=== PATIENT | male | born 1945 | race Caucasian/White ===

== ENCOUNTER 2018-10-10 13:35 | Inpatient (IN) | payer MEDICARE ==
[2018-10-10 14:55] LABS: #Lymphocytes 2.2 thou/uL (1.20-3.40); #Monocytes 0.9 thou/uL (0.11-0.59); #Neutrophils 10.1 thou/uL (1.40-6.50); %Basophils 0.2 % (0.0-1.0); %Eosinophils 0.4 % (0.0-10.0); %Lymphocytes 16.8 % (21.0-51.0); %Monocytes 6.7 % (0.0-10.0); Hemoglobin 12.5 g/dL (14.0-18.0); Mean Corpuscular HGB CONC 33.4 g/dL (32.0-36.0); Mean Corpuscular Hemoglobin 29.7 pg (27.0-31.0); Mean Platelet Volume 8.3 fL (7.4-10.4); Platelet Count 189 thou/uL (130-400); RBC Distribution Width 12.9 % (11.5-14.5); Red Blood Cell (RBC) Count 4.21 mill/uL (4.70-6.10); White Blood Cell (WBC) Count 13.2 thou/uL (4.8-10.8)
[2018-10-10 15:16] LABS: Phosphorus 3.9 mg/dL (2.3-4.7)
--- NOTE | 2018-10-10 15:17 | RAD ---
FRONTAL VIEW CHEST: INDICATION: Altered mental status. FINDINGS: Reference is made to 08/18/2018. There is a linear density at the left lung base which may relate to scar or volume loss. Mild perihi lar interstitial prominence is seen bilaterally. Cardiac silhouette is stable in size. No additiona l significant interval change. IMPRESSION: 1. Left basilar atelectasis/scarring. 2. Mild interstitial prominence of the bilateral perihilar regions which could relate to edema or in terstitial lung disease. Consider imaging followup for continued assessment. POS: MADELAINE
[2018-10-10 15:20] LABS: ALT (SGPT) 10 U/L (8-55); AST (SGOT) 14 U/L (5-34); Acetaminophen Less than 6.0 mcg/mL (10.0-30.0); Albumin 3.2 g/dL (3.4-4.8); Alcohol Less than 10 mg/dL (Less than 10); Alkaline Phosphatase 94 U/L (40-150); Anion Gap 15 mmol/L (10-20); BUN (Urea Nitrogen) 48 mg/dL (8.4-25.7); Bilirubin, Total 0.7 mg/dL (0.2-1.2); Calc. Creatinine Clearance 34 mL/min (70-130); Calcium 8.1 mg/dL (7.8-10.44); Carbon Dioxide 19 mmol/L (23-31); Chloride 107 mmol/L (98-107); Estimated GFR-MDRD 20; Globulin 3.2 g/dL (2.4-3.5); Glucose 187 mg/dL (83-110); Magnesium 2.3 mg/dL (1.6-2.6); Potassium 3.3 mmol/L (3.5-5.1); Protein, Total 6.4 g/dL (5.8-8.1); Salicylate Less than 8.0 mg/dL (15.0-30.0); Sodium 138 mmol/L (136-145)
--- NOTE | 2018-10-10 15:55 | CT ---
CT HEAD WITHOUT CONTRAST: INDICATIONS: Confusion. COMPARISON: 08/18/2018 FINDINGS: Multifocal chronic deep white matter and deep smith nuclei infarctions, consistent with cavitary lacun ar infarctions, are redemonstrated. There is ex vacuo dilatation of the ventricular system, stable. No intracranial hemorrhage, mass effect, or midline shift. Mild chronic microvascular ischemic dise ase is present. IMPRESSION: 1. Stable head CT without interval acute intracranial hemorrhage or mass effect. 2. Redemonstration of multifocal cavitary lacunar infarctions, superimposed upon microvascular ische shaka disease. POS: MADELAINE
--- NOTE | 2018-10-10 15:59 | RAD ---
Exam: Chest one view COMPARISON: 10/10/2018 HISTORY: Status post central line placement FINDINGS: Stable cardiac silhouette. Pulmonary vessels are prominent. There are patchy interstitial a nd alveolar opacities. Small left-sided pleural effusion. Interval placement of a right-sided internal jugular central venous catheter. No pneumothorax in the supine projection. IMPRESSION: 1. Evidence for congestive heart failure/volume overload. 2. Right-sided central venous catheter as above. No pneumothorax on this supine projection
[2018-10-10 16:35] LABS: Bilirubin Small (Negative); Blood, Urine Negative (Negative); Clarity CLOUDY (Clear); Glucose, Urine (Dipstick) Negative (Negative); Leukocyte Negative (Negative); Nitrite Negative (Negative); Protein, Urine (Dipstick) Trace mg/dL (Neg-Trace)
[2018-10-10 16:48] LABS: Amphetamine Not Detected (NotDetected); Barbiturates Screen Not Detected (NotDetected); Benzodiazepine Screen Not Detected (NotDetected); Cocaine Metabolite Screen Not Detected (NotDetected); Medtox Control Line Valid? VALID (VALID); Medtox Reader # READER 1; Methadone Not Detected (NotDetected); Methamphetamine Not Detected (NotDetected); Opiate Screen Detected (NotDetected); Oxycodone Screen Not Detected (NotDetected); Phencyclidine (PCP) Not Detected (NotDetected); THC/Cannabinoid Screen Not Detected (NotDetected); Tricyclic Screen Detected (NotDetected)
[2018-10-10] MEDS ORDERED: Piperacillin/Tazobactam 4.5 GM VIAL ONE (17:11)
--- NOTE | 2018-10-10 17:25 | PDOC.FPRHP ---
- History of Present Illness Chief Complaint: Weakness, Somnolence, Drug Toxicity History of Present Illness: Mr. 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 He was awake and semi alert for interview but was primary historian. Pt became somnolent, unresponsive, and diaphoretic after parking his truck early this am. His says he was unresponsive for 20 mins before EMS arrived. At this time he was found to be hypotensive. He does not remember this occurrence. His states he had no symptoms yesterday but has episodes of lethargy and fatigue 2-3x/month. During these episodes he has difficutly with normal activity. The episode resolves in 1-2 days. Of note his states he took double his medication this morning. She states this is not uncommon as he does not realize it can harm him. He denies recent steroids. ED Course: EMS noted his BP's to be low so he was started immediately on fluid resuscitation. An IJV line was placed in route to the ED. Due to his continued low pressures, epinephrine was started which managed to control his blood pressures with MAPs slightly above 65. He was found to have leukocytosis 13.2 with left shift, BNP < 10, BUN 48, Creat 3.06, lactic acid 3.1, K 3.3. He was given zosyn. CT head was unremarable for acute pathology. Initial CXR was unremarkable; repeat CXR revealed pulmonary edema and congestion. UDS revealed opiates, tricyclics which are in home meds. - Allergies/Adverse Reactions Allergies Allergy/AdvReac Type Severity Reaction Status Date / Time No Known Allergies Allergy Verified 10/10/18 20:00 - Home Medications Medication Instructions Recorded Confirmed Type Acetaminophen W/ Codeine 1 tab PO PRN PRN 10/10/18 10/10/18 History [Acetaminophen/Codeine #3] Amiodarone HCl 0.5 tab PO DAILY 10/10/18 10/10/18 History Amlodipine [Norvasc] 0.5 tab PO DAILY 10/10/18 10/10/18 History Lamotrigine [lamoTRIgine] 1.25 tab PO DAILY 10/10/18 10/10/18 History Losartan Potassium 1 tab PO BID 10/10/18 10/10/18 History Pantoprazole Sodium 40 mg PO DAILY 10/10/18 10/10/18 History QUEtiapine Fumarate [Quetiapine 400 mg PO HS 10/10/18 10/10/18 History Fumarate ER] Rosuvastatin [Crestor] 1 tab PO DAILY 10/10/18 10/10/18 History - History PMHx: HTN, bipolar, hx of CVA, CHF with likely decreased EF but pt was not positive, A-fib requiring cardioversion twice, hemorrhagic stroke secondary to a fall, and 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 denies: numbness, seizure - Vital signs BP: [] HR: [] RR: [] Tmax: [] Pox: []% on [] Wt: [] - Physical Exam Constitutional: awake, alert and oriented, other HEENT: PERRLA Neck: trachea midline, no JVD Chest: no-tender to palpation Heart: RRR, normal S1/S2, pulses present, no edema, other (systolic murmur appreciated) Lungs: CTAB, no respiratory distress, no rales/rhonchi, no wheezing Abdomen: soft, non-tender, bowel sounds present Musculoskeletal: normal structure Neurological: CN II-XII intact Skin: no rash/lesions Heme/Lymphatic: no purpura, no petechia FMR H&P: Results - Labs Result Diagrams: 10/11/18 04:15 10/11/18 04:15 Lab results: WBC 13.2 thou/uL (4.8-10.8) H 10/10/18 14:42 Hgb 12.5 g/dL (14.0-18.0) L 10/10/18 14:42 Hct 37.4 % (42.0-52.0) L 10/10/18 14:42 MCV 89.0 fL (78.0-98.0) 10/10/18 14:42 Plt Count 189 thou/uL (130-400) 10/10/18 14:42 Neutrophils % 76.0 % (42.0-75.0) H 10/10/18 14:42 Sodium 138 mmol/L (136-145) 10/10/18 14:42 Potassium 3.3 mmol/L (3.5-5.1) L 10/10/18 14:42 Chloride 107 mmol/L (98-107) 10/10/18 14:42 Carbon Dioxide 19 mmol/L (23-31) L 10/10/18 14:42 BUN 48 mg/dL (8.4-25.7) H 10/10/18 14:42 Creatinine 3.06 mg/dL (0.7-1.3) H 10/10/18 14:42 Glucose 187 mg/dL (83-110) H 10/10/18 14:42 Lactic Acid 3.1 mmol/L (0.5-2.2) H 10/10/18 14:42 Calcium 8.1 mg/dL (7.8-10.44) 10/10/18 14:42 Total Bilirubin 0.7 mg/dL (0.2-1.2) 10/10/18 14:42 AST 14 U/L (5-34) 10/10/18 14:42 ALT 10 U/L (8-55) 10/10/18 14:42 Alkaline Phosphatase 94 U/L (40-150) 10/10/18 14:42 B-Natriuretic Peptide Less than 10.0 pg/mL (0-100) 10/10/18 14:42 Serum Total Protein 6.4 g/dL (5.8-8.1) 10/10/18 14:42 Albumin 3.2 g/dL (3.4-4.8) L 10/10/18 14:42 Urine Ketones Negative mg/dL (Negative) 10/10/18 16:11 Urine Blood Negative (Negative) 10/10/18 16:11 Urine Nitrite Negative (Negative) 10/10/18 16:11 Ur Leukocyte Esterase Negative (Negative) 10/10/18 16:11 - Radiology Interpretation CT scan - head Status: report reviewed by me (unremarkable) Chest x-ray Status: image reviewed by me (Initial CXR was unremarkable; follow up CXR revealed congestion and pulmonary edema) FMR H&P: A/P - Problem List (1) Hypotension Current Visit: Yes Status: Acute (2) NADJA (acute kidney injury) Current Visit: Yes Status: Acute Code(s): N17.9 - ACUTE KIDNEY FAILURE, UNSPECIFIED (3) Lactic acid acidosis Current Visit: Yes Status: Acute Code(s): E87.2 - ACIDOSIS (4) Drug toxicity Current Visit: Yes Status: Acute Priority: High Code(s): R89.2 - ABN LEV DRUG/MEDS/BIOL SUBST IN SPECIMENS FROM OTH ORG/TISS (5) Dementia Current Visit: Yes Status: Acute Code(s): F03.90 - UNSPECIFIED DEMENTIA WITHOUT BEHAVIORAL DISTURBANCE (6) Hypertension Current Visit: Yes Status: Acute Code(s): I10 - ESSENTIAL (PRIMARY) HYPERTENSION - Plan # Unresponsiveness # Symptomatic Hypotension Secondary to Cardiogenic shock vs septic shock Pt unresponsive for 20 mins before EMS arrived. BP's low on arrival to ED 70's/ 40's, given 3.5 L, IJ line started, epinephrine administered. Pressures increased w/ MAP >65. GLucose stable in ED. He has hx of previous episodes of fatigue/lethargy but none resulting in unresponsiveness. Initial CXR was unremarkable but after fluids repeat showed pulm congestion/ edema. CT head unremarkable. BNP < 10, trop negative, UDS positive tricyclic/ opioids, lactic 3.1, BUN 48, crea 3.06. He did not appear fluid overloaded on exam. - levophed started - echo ordered - 3.5 L given - repeat BNP - ABG ordered - Zosyn, vanc started for broad spectrum coverage but no source. Consult pharm for dosing, appreciate the rec's - pending UCx, BloodCx, procal, latic acid, - repeat EKG - fluid limitation 1500ml, strict I's/O's # NADJA vs CKD Do not have records to assess pt's kidney function prior admission. BUN 48, Crea 3.06 with ratio ~16 not necessarily indicating pre-renal cause if NADJA - repeat bmp in am - hopefully with increased perfusion of organs will see resolution in kidney dysfunction. # Lactic Acidosis Likely secondary to hypoperfusion with acute hypotensive episode. Lactic acid 3.1. - repeat lactic acid # Drug Toxicity Pt's family reports he took double his medications this morning. - hold home BP meds # Hypertension - Hold home meds # Dementia - continue to monitor FMR H&P: Upper Level - Pertinent history 72 yo M w/ PMH of HTN, HF with presumed reduced EF per family history, paroxysmal a-fib who presents after an episode of hypotension and unresponsiveness. Per family pt was found slouched in his truck and unresponsive. Over the last month the pts family has reported he has had episodes of hypotension without any identifiable source. Today the family noted he took his morning and evening blood pressure medications all at once. He denies any associated symptoms aside from weakness. Family denies an recent complaints. No cp, SOB, NVDC, fever, chills, dysuria. - Pertinent findings PE: Gen: Somnolent, no acute distress HEENT: NCAT, Rt IJ in place Respiratory: Lungs CTA bl Cards: 3/6 LISA, distant heart sounds, No hepatojugular reflux Abd: Soft NTND, BSX4 Neuro: Pt GCS 15, reposnds to verbal stimuli and appropriately responds to questions A/P 1) Shock: septic vs cardiogenic pt has elevated wbc with left shift and hypotension, was started on broad spectrum abx, will cont abx and check procal cxr and urine negative no source of infection possibly cardiogenic vs medication side effect echo pending will cont levophed maintain map >65 2) Lactic acidosis trend; likely 2/2 hypoperfusion check echo and continue pressor support plus broad spectrum abx, procal pending 3) NADJA on CKD vs CKD - consider am calcium and phos, possible nephro consult; however, elytes currently stable - Bun/Cr<20 - monitor AM BMP, trend 4) HTN: curerntly hypotensive, hold home medications - cont levophed and maintain MAP>65 - Plan Date/Time: 10/10/18 [id number] IJay DO, have evaluated this patient and agree with findings/ plan as outlined by internet developer resident. Pertinent changes/additions are listed here. Pt disposition guarded. Admit to CCU and cont pressor support. Cont workup for source of hypotension. PCP: [facility] Code Status: Full
[2018-10-10] MEDS ORDERED: Ondansetron PF 4 MG/2 ML Vial IVP PRN ×2 (18:49→19:15)
[2018-10-10] MEDS ORDERED: Ondansetron ODT 4 MG TAB SL PRN (18:49)
[2018-10-10] MEDS ORDERED: Norepinephrine 8 MG/0.9% NS 250 ML IVPB SCH (19:15)
[2018-10-10] MEDS ORDERED: CCU Electrolyte Replacement 1 EACH FS ONE (19:15)
[2018-10-10] MEDS ORDERED: Ondansetron ODT 4 MG TAB PO PRN (19:15)
[2018-10-10] MEDS ORDERED: Acetaminophen 325 MG TAB PO PRN (19:15)
[2018-10-10 19:22] LABS: Lactic Acid 4.2 mmol/L (0.5-2.2)
[2018-10-10] MEDS ORDERED: Magnesium 2 GM/50 ML 2 GM in Premix Bag 1 BAG IVPB PRN (19:25)
[2018-10-10] MEDS ORDERED: CCU ELECTROLYTE REPLACEMENT PROTOCOL FS PRN (19:25)
[2018-10-10] MEDS ORDERED: Potassium Phosphate 9 MMOL in Sodium Chloride 0.9% 100 ML IVPB PRN (19:25)
[2018-10-10] MEDS ORDERED: Potassium Phosphate 12 MMOL in Sodium Chloride 0.9% 250 ML 250 ML IV PRN (19:25)
[2018-10-10] MEDS ORDERED: Potassium Chloride 40 MEQ in Premix Bag 1 BAG IVPB PRN (19:25)
[2018-10-10] MEDS ORDERED: PHOS-NAK 1 PKT PACK PO PRN ×2 (19:25)
[2018-10-10] MEDS ORDERED: Potassium Phosphate 15 MMOL in Sodium Chloride 0.9% 250 ML 250 ML IV PRN (19:25)
[2018-10-10] MEDS ORDERED: Potassium Chloride 20 MEQ TAB PO PRN (19:25)
[2018-10-10] MEDS ORDERED: Potassium Chloride 40 MEQ in Sodium Chloride 0.9% 250 ML 250 ML IVPB PRN (19:25)
[2018-10-10] MEDS ORDERED: Magnesium Oxide 400 MG TAB PO PRN ×2 (19:25)
[2018-10-10] MEDS ORDERED: Vancomycin HCl 1.75 GM in Sodium Chloride 0.9% 500 ML IVPB SCH (19:30)
[2018-10-10] MEDS ORDERED: Norepinephrine 8 MG in Dextrose 5% in Water 242 ML IVPB SCH (19:30)
[2018-10-10] MEDS: Sodium Chloride 0.9% 1,000 ML IV SCH (19:34)
[2018-10-10 20:24] LABS: Troponin I Less than 0.010 ng/mL (< 0.028)
[2018-10-10] MEDS ORDERED: Vancomycin HCl 1 GM in Sodium Chloride 0.9% 250 ML 250 ML IVPB SCH (21:00)
[2018-10-10 21:19] LABS: Actual Bicarbonate (HCO3a) 20.4 mEq/L (22-28); CO2 Tension 35.1 mmHg (35.0-45.0); Calcium, Ionized 1.19 mmol/L (1.12-1.30); Carboxyhemoglobin (COHb) 0.9 gm% (0.0-3.0); Hemoglobin (Hb) 12.6 g/dL (14.0-18.0); O2 Tension (PaO2) 80.9 mmHg (> 70.0); Potassium - ABG Lab 3.91 mmol/L (3.70-5.30); pH, Arterial 7.38 (7.35-7.45)
[2018-10-10 21:21] LABS: ALV-art Gradient 24.955 (0-20); Puncture Site LBR
[2018-10-11] MEDS: Piperacillin/Tazobactam 4.5 GM in Sodium Chloride 0.9% 100 ML IVPB SCH ×5 (00:05→23:35)
[2018-10-11 04:29] LABS: #Eosinphils 0.1 thou/uL (0.0-0.7); #Lymphocytes 1.5 thou/uL (1.20-3.40); #Monocytes 0.6 thou/uL (0.11-0.59); #Neutrophils 5.9 thou/uL (1.40-6.50); %Basophils 0.1 % (0.0-1.0); %Eosinophils 0.7 % (0.0-10.0); %Lymphocytes 18.7 % (21.0-51.0); %Monocytes 7.6 % (0.0-10.0); %Neutrophils 72.9 % (42.0-75.0); Hemoglobin 11.6 g/dL (14.0-18.0); Mean Corpuscular HGB CONC 33.7 g/dL (32.0-36.0); Mean Corpuscular Hemoglobin 30.1 pg (27.0-31.0); Mean Corpuscular Volume 89.4 fL (78.0-98.0); Mean Platelet Volume 7.5 fL (7.4-10.4); Platelet Count 193 thou/uL (130-400); RBC Distribution Width 12.9 % (11.5-14.5); Red Blood Cell (RBC) Count 3.85 mill/uL (4.70-6.10); White Blood Cell (WBC) Count 8.1 thou/uL (4.8-10.8)
[2018-10-11 04:42] LABS: Lactic Acid 0.6 mmol/L (0.5-2.2)
[2018-10-11 04:46] LABS: Anion Gap 11 mmol/L (10-20); BUN (Urea Nitrogen) 36 mg/dL (8.4-25.7); Calc. Creatinine Clearance 61 mL/min (70-130); Calcium 8.6 mg/dL (7.8-10.44); Carbon Dioxide 21 mmol/L (23-31); Chloride 111 mmol/L (98-107); Estimated GFR-MDRD 39; Glucose 83 mg/dL (83-110); Sodium 139 mmol/L (136-145)
[2018-10-11] MEDS: Sodium Chloride 0.9% 1,000 ML IV SCH (05:47)
--- NOTE | 2018-10-11 06:41 | PDOC.FM ---
- Subjective Subjective: pt resting comfortably in bed, denies SOB/chest pain, dizziness or visual disturbance - Objective Vital Signs & Weight: Vital Signs (12 hours) Temp Pulse Ox 10/11/18 04:00 97.7 F 10/11/18 00:00 97.9 F 10/10/18 20:00 97.7 F 98 Weight Weight 109.3 kg Most Recent Monitor Data Heart Rate from ECG 57 NIBP 129/70 NIBP BP-Mean 89 Respiration from ECG 12 SpO2 97 I&O: 10/09/18 10/10/18 10/11/18 06:59 06:59 06:59 Intake Total 1557.6 Output Total 875 Balance 682.6 Result Diagrams: 10/11/18 04:15 10/11/18 04:15 Phys Exam - Physical Examination Constitutional: NAD HEENT: moist MMs Respiratory: clear to auscultation bilateral Cardiovascular: RRR, no significant murmur Gastrointestinal: soft, non-tender, no distention Musculoskeletal: no edema, pulses present Neurological: moves all 4 limbs Psychiatric: normal affect Skin: no rash Dx/Plan (1) NADJA (acute kidney injury) Code(s): N17.9 - ACUTE KIDNEY FAILURE, UNSPECIFIED Status: Acute (2) Hypotension Status: Acute (3) Lactic acid acidosis Code(s): E87.2 - ACIDOSIS Status: Acute (4) Shock Code(s): R57.9 - SHOCK, UNSPECIFIED Status: Acute - Plan Plan: Shock, septic vs cardiogenic - elevated wbc with left shift and hypotension, procal +, UA wnl - cont broad spectrum abx until 48hr BCx (NGTD) - CXR suspicious for fluid overload possibly cardiogenic vs medication side effect - echo pending - MAPs adequate overnight, levophed DCd Lactic acidosis, resolved - likely 2/2 hypoperfusion - procal +, echo pending NADJA on CKD - improved, continue to monitor HTN - curerntly normotensive, hold home medications dispo: continue to monitor in CCU, consider txfr to floor later today
[2018-10-11] MEDS: Enoxaparin Sodium 30 MG/0.3 ML SYRINGE SC SCH (08:35)
[2018-10-11] MEDS: Rosuvastatin 20 MG TAB PO SCH (09:18)
[2018-10-11] MEDS: Amiodarone 200 MG TAB PO SCH (09:18)
--- NOTE | 2018-10-11 11:34 | PRG ---
DATE OF SERVICE: 10/11/2018 In addition to the note of Dr. Bandar Carrera for today, Mr. Serna this morning is awake and alert. His vital signs have returned to normal. His cultures so far are negative. He was initially admitted with the possibility of sepsis, being hypotensive with an elevated white count. Other possibilities include his use of antihypertensive agents that he may have "doubled up on." He is also on some opiate medication, which could have contributed to his altered mental status at the outset. In the event, he is much better this morning and we will continue broad-spectrum antibiotics until all cultures are returned negative after 24 to 48 hours. He is however stable for transfer to the regular medical floor. Job ID: [id number]
--- NOTE | 2018-10-11 16:36 | CON ---
DATE OF CONSULTATION: HISTORY OF PRESENT ILLNESS: Mr. Serna is a very pleasant 72-year-old, who presented with hypotension and altered mental status. He was seen in consultation because of his presence in the ICU this morning. He says his normally organized his pills, but he thinks he took twice his normal pills yesterday by accident. He does not really remember much about yesterday. He says he feels much better. PAST MEDICAL HISTORY: Remarkable for; 1. Hypertension. 2. History of atrial fibrillation requiring cardioversion. 3. History of a fall with a brain hemorrhage. 4. History of some type of cyst removed from his spine leading to a CSF leak on May 23, 2018. FAMILY HISTORY: Negative for lung disease in early age. REVIEW OF SYSTEMS: Otherwise negative. He denies headache, change in vision, cough, purulent sputum, abdominal pain, dysuria, or hematuria. Otherwise, review of systems negative. PHYSICAL EXAMINATION: VITAL SIGNS: Heart rate 71, blood pressure is 112/48, respiratory rate 18, and oximetry is 95. HEENT: Pupils are equal and reactive. Sclerae are anicteric. Extraocular movements appear full. Throat is clear. NECK: Supple. No lymphadenopathy. Trachea is midline. LUNGS: Clear. HEART: Regular rhythm. S1 and S2 are normal. ABDOMEN: Soft and nontender. EXTREMITIES: Without clubbing, cyanosis, or edema. LABORATORY DATA: White count 8.1, hemoglobin 11.6, and platelets 193. Sodium 139, potassium 4, chloride 111, bicarb 21, BUN 36, and creatinine 1.73. Creatinine was 0.98 in June of this year, was 3.06 yesterday. IMPRESSION AND PLAN: Encephalopathy yesterday, probably related to low blood pressure. It is unclear whether or not he truthfully did accidentally doubled his medicines yesterday morning, but this might explain a lot of what was going on. Given that he presented with an elevated creatinine, I suspect this did not occur just based on overdosing on medicine yesterday morning. I suspect he was severely intravascularly volume depleted when he came in. Blood culture so far have been negative. He has no clinical source of sepsis. Chest radiograph did show bilateral infiltrates consistent with pulmonary edema once he was hydrated. An echocardiogram is pending. His initial chest x-ray was clear. I will be happy to follow with the other physicians caring for him. Job ID: [id number]
[2018-10-11 20:52] LABS: Vancomycin, Random 7.5 ug/mL (See Comment)
[2018-10-11] MEDS ORDERED: Vancomycin HCl 1.75 GM in Sodium Chloride 0.9% 500 ML IVPB SCH (22:00)
[2018-10-12 03:44] LABS: #Eosinphils 0.2 thou/uL (0.0-0.7); #Lymphocytes 1.8 thou/uL (1.20-3.40); #Monocytes 0.3 thou/uL (0.11-0.59); %Basophils 0.3 % (0.0-1.0); %Lymphocytes 33.3 % (21.0-51.0); %Monocytes 6.2 % (0.0-10.0); %Neutrophils 56.1 % (42.0-75.0); Hemoglobin 11.9 g/dL (14.0-18.0); Mean Corpuscular HGB CONC 33.3 g/dL (32.0-36.0); Mean Corpuscular Hemoglobin 29.8 pg (27.0-31.0); Mean Corpuscular Volume 89.5 fL (78.0-98.0); Mean Platelet Volume 7.1 fL (7.4-10.4); Platelet Count 212 thou/uL (130-400); RBC Distribution Width 12.7 % (11.5-14.5); Red Blood Cell (RBC) Count 3.99 mill/uL (4.70-6.10); White Blood Cell (WBC) Count 5.3 thou/uL (4.8-10.8)
[2018-10-12 04:01] LABS: Anion Gap 11 mmol/L (10-20); BUN (Urea Nitrogen) 18 mg/dL (8.4-25.7); Calc. Creatinine Clearance 82 mL/min (70-130); Calcium 8.8 mg/dL (7.8-10.44); Carbon Dioxide 23 mmol/L (23-31); Chloride 108 mmol/L (98-107); Estimated GFR-MDRD 56; Glucose 109 mg/dL (83-110); Potassium 3.7 mmol/L (3.5-5.1); Sodium 138 mmol/L (136-145)
[2018-10-12 05:24] VITALS: BMI 34.0
[2018-10-12] MEDS: Piperacillin/Tazobactam 4.5 GM in Sodium Chloride 0.9% 100 ML IVPB SCH ×2 (05:24→11:10)
--- NOTE | 2018-10-12 07:55 | PDOC.FM ---
- Subjective Subjective: pt sleeping comfortably in bed, denies dizziness/chest pain/fever - Objective Vital Signs & Weight: Vital Signs (12 hours) Temp Pulse Ox 10/12/18 03:00 98.6 F 10/11/18 23:00 98.4 F 10/11/18 20:00 98 Weight Weight 110.3 kg Most Recent Monitor Data Heart Rate from ECG 48 NIBP 112/57 NIBP BP-Mean 75 Respiration from ECG 11 SpO2 98 I&O: 10/11/18 10/12/18 10/13/18 06:59 06:59 06:59 Intake Total 1557.6 2210 0 Output Total 875 2525 Balance 682.6 -315 0 Result Diagrams: 10/12/18 03:30 10/12/18 03:30 Phys Exam - Physical Examination Constitutional: NAD HEENT: moist MMs Neck: full ROM Respiratory: clear to auscultation bilateral Cardiovascular: RRR, no significant murmur Gastrointestinal: non-tender, no distention Musculoskeletal: no edema, pulses present Neurological: moves all 4 limbs Psychiatric: normal affect Skin: no rash Dx/Plan (1) NADJA (acute kidney injury) Code(s): N17.9 - ACUTE KIDNEY FAILURE, UNSPECIFIED Status: Acute (2) Hypotension Status: Acute (3) Lactic acid acidosis Code(s): E87.2 - ACIDOSIS Status: Acute (4) Shock Code(s): R57.9 - SHOCK, UNSPECIFIED Status: Acute - Plan Plan: septic shock, resolved - elevated wbc with left shift and hypotension, procal +, UA wnl - cont broad spectrum abx, BCx NGTD - CXR suspicious for fluid overload vs atypical pnuemonia - echo wnl, cardiogenic shock unlikely - VSS, WBC normalized- possible stress response Lactic acidosis, resolved - likely 2/2 hypoperfusion - procal + NADJA on CKD - improved, continue to monitor HTN - curerntly normotensive, restarted home meds as tolerated - amiodarone restarted dispo: txfr to telemetry when bed available, consider DC today or tomorrow
[2018-10-12] MEDS: Amiodarone 200 MG TAB PO SCH (08:16)
[2018-10-12] MEDS: Enoxaparin Sodium 30 MG/0.3 ML SYRINGE SC SCH (08:16)
[2018-10-12] MEDS: Rosuvastatin 20 MG TAB PO SCH (08:18)
[2018-10-12] MEDS ORDERED: lamoTRIgine 100 MG TAB PO SCH (09:00)
[2018-10-12 12:14] VITALS: TEMP 98.2
--- NOTE | 2018-10-12 12:39 | PRG ---
DATE OF SERVICE: 10/12/2018 SUBJECTIVE: Mr. Serna this morning is awake and alert. Looks and feels much better. His blood pressure is now 159/63, respirations are 18, and he is afebrile. In retrospect, he likely had some multifactorial issues. He perhaps took some of his medications inappropriately reducing his blood pressure. He may have had an element of heat exhaustion as he was "found down" in his vehicle on a hot summer day. Subsequent chest x-ray did show some patchy infiltrates suggesting that at least the possibility of an early atypical pneumonia, although his admission chest x-ray was normal. Out of an abundance of precaution, we will treat him with 5 days of doxycycline. Otherwise, I think he is ready for discharge probably later today. Job ID: [id number]
[2018-10-12 13:00] VITALS: BP 117/64
--- NOTE | 2018-10-12 14:52 | PQF ---
TRUDAVID GARETT *r [id number] CLINICAL DOCUMENTATION IMPROVEMENT CLARIFICATION FORM: ICD-10 Updated PLEASE DO AN ADDENDUM TO THE PROGRESS NOTE WITH ANY DOCUMENTATION UPDATES OR ADDITIONS AND CARRY THROUGH TO DC SUMMARY. THANK YOU. DATE: 10/12/18 ATTN:DR. Humberto MCDOWELL Please exercise your independent, professional judgment in responding to the clarification form. Clinical indicators are provided on the bottom of this form for your review. Please check appropriate box(s): [ ] Empirically treating Gram Negative Pneumonia [ ] Empirically treating Anaerobic Pneumonia [ ] Pneumonia secondary to (specify organism / underlying disease) [x] Simple Pneumonia (community acquired - nosocomial) [ ] Other diagnosis [ ] Unable to determine In addition, please specify: Present on Admission (POA): [ x] Yes [ ] No [ ] Unable to determine For continuity of documentation, please document condition throughout progress notes and discharge summary. Thank You. CLINICAL INDICATORS - SIGNS / SYMPTOMS / LABS 10/10 WBC 13.2 10/10 CHEST X RAY: FINDINGS-- THERE ARE PATCH INTERSTITIAL AND ALVEOLAR OPACITIES . SMALL LEFT SIDED PLEURAL EFFUSION. 10/12 (JULY) CXR SUSPICIOUS FOR FLUID OVERLOAD VS ATYPICAL PNEUMONIA 10/12 (PENNY) SUBSEQUENT CHEST X RAY DID SHOW SOME PATCHY INFILTRATES SUGGESTING THAT AT LEAST THE POSSIBILITY OF AN EARLY ATYPICAL PNEUMONIA, ALTHOUGH HIS ADMISSION CHEST XRAY WAS NORMAL. OUT OF AN ABUNDANCE OF PRECAUTION , WE WILL TREAT HIM WITH 5 DAYS OF DOXYCYCLINE. RISK: DX OF SEPTIC SHOCK (JULY) ADVANCED AGE (72) NONCOMPLIANCE WITH MEDICATIONS TREATMENTS: CXR DOXYCYCLINE PULMONOLOGY CONSULT SERIAL LABS THANK YOU ! LARRY (This form is maintained as a part of the permanent medical record) 2014 [employer]. All Rights Reserved [email or web address] [phone] MTDD
[2018-10-12] MEDS ORDERED: Doxycycline 100 MG CAP PO SCH (21:00)
--- NOTE | 2018-10-12 21:53 | DIS ---
DATE OF ADMISSION: 10/10/2018 DATE OF DISCHARGE: 10/12/2018 RESIDENT: Bandar Carrera DO CONSULTS: None. PROCEDURES: None. IMAGING: Brain CT negative for acute intracranial findings. Chest x-ray significant for bilateral patchy infiltrates suggestive of pneumonia versus vascular congestion, bilateral pulmonary edema possibly present. Echocardiogram significant for left ventricular ejection fraction, visually estimated at 55% to 60%, borderline left ventricular hypertrophy. DISCHARGE MEDICATIONS: 1. Crestor 20 mg p.o. daily. 2. Quetiapine 400 mg p.o. at bedtime. 3. Pantoprazole 40 mg p.o. daily. 4. Lamotrigine 125 mg p.o. daily. 5. Amiodarone 100 mg p.o. daily. 6. Tylenol No. 3 one tab p.o. p.r.n. 7. Doxycycline 100 mg p.o. b.i.d. for 5 days. DISCONTINUED MEDICATIONS: 1. Losartan 25 mg p.o. daily. 2. Amlodipine 5 mg p.o. daily. PRIMARY DIAGNOSES: 1. Septic shock, resolved. 2. Medication reaction. SECONDARY DIAGNOSES: 1. Lactic acid, resolved. 2. Acute kidney injury. 3. Hypertension. HISTORY OF PRESENT ILLNESS/HOSPITAL COURSE: Mr. Serna is a 72-year-old male with a past medical history significant for hypertension, bipolar, history of CVA and congestive heart failure, atrial fibrillation, and hemorrhagic stroke secondary to fall who presented to the emergency department with his as the primary historian, reports that the patient became somnolent, unresponsive and diaphoretic after parking his truck early in the morning prior to arrival. Reported that he was unresponsive for 20 minutes before EMS arrived. At that time, he was found to be hypotensive. En route, he was given 3.5 L of normal saline and started on an epinephrine drip by EMS. Upon arriving to the emergency department, he regained responsiveness and upon our exam, he was A and O x3 and did not have any focal neurologic deficits, was not complaining of chest pain, shortness of breath, nausea, or vomiting. Denied any dyspnea on exertion or palpitations at that time. It was determined that the patient would need central venous access for continuation of pressor support as patient's pressors continued to remain with a MAP below 65. Levophed was started at that time. The patient was deemed appropriate for monitoring in the critical care unit, was transferred to that floor. Shortly afterward, Levophed was able to be weaned down and discontinued. The patient maintained MAPs stable over 65 that night. The next day, the patient was evaluated and found to be normotensive. No complaints at that time. Chest x-ray was suspicious for pneumonia, so the broad-spectrum antibiotics were continued. The patient remained stable, asymptomatic. Blood cultures resulted at 48 hours were negative. The patient was transitioned to oral antibiotics and deemed stable for discharge home with reduction in blood pressure medicines at home and a 5-day course of doxycycline. DISCHARGE INSTRUCTIONS: 1. Location: Home. 2. Diet: Heart healthy low-sodium. 3. Activity: As tolerated. 4. Followup: Follow up with PCP, Dr. Valenzuela in [place], [place] in the next 3-5 days. Job ID: [id number]
== END 2018-10-12 13:38 | disposition home or self-care (01) | DRG 871 ==
LOC: ERS 13:35 → CCU 18:36
PROVIDERS: ADMIT Family Medicine; ATTEND Family Medicine
PROC: 02HV33Z Insertion of Infusion Device into Superior Vena Cava, Percutaneous Approach (ICD-10-PCS; principal; 2018-10-10)
PROC: 3E033XZ Introduction of Vasopressor into Peripheral Vein, Percutaneous Approach (ICD-10-PCS; 2018-10-10)
DX: A41.9 Sepsis, unspecified organism (principal); R65.21 Severe sepsis with septic shock; J18.9 Pneumonia, unspecified organism; N17.9 Acute kidney failure, unspecified; E87.2 Acidosis; G93.49 Other encephalopathy; I48.91 Unspecified atrial fibrillation; E78.5 Hyperlipidemia, unspecified; F03.90 Unspecified dementia, unspecified severity, without behavioral disturbance, psychotic disturbance, mood disturbance, and anxiety; F31.9 Bipolar disorder, unspecified; I11.0 Hypertensive heart disease with heart failure; I50.9 Heart failure, unspecified; R89.2 Abnormal level of other drugs, medicaments and biological substances in specimens from other organs, systems and tissues; Z87.891 Personal history of nicotine dependence; Z86.73 Personal history of transient ischemic attack (TIA), and cerebral infarction without residual deficits; Z79.899 Other long term (current) drug therapy
CPT/HCPCS: 36415; 70450; 71045; 80048; 80053; 80202; 80306; 80307; 81003; 82805; 83605; 83735; 83880; 84100; 84145; 84443; 84484; 85025; 87040; 87086; 93005; 93306; J0171; J1650; J2543; J3370; J3490; J7050; J7070